=== PATIENT | male | born 1960 | race Caucasian/White ===

== ENCOUNTER 2020-09-05 08:17 | Observation (INO) ==
[2020-09-05 08:44] LABS: Basophils % 0.4 % (0.0-0.8); Eosinophils # 0.2 10*3/uL (0.0-0.87); Eosinophils % 1.8 % (0.00-10.9); Hematocrit 40.8 VOL% (42.0-52.0); Hemoglobin 14.3 GM/DL (14.0-18.0); Immature Granulocytes % 0.4 %; Immature Granulocytes Absolute 0.04 #; Lymphocytes # 1.2 10*3/uL (1.4-4.0); Lymphocytes % 10.9 % (21.2-54.2); Mean Corpuscular Volume 96.5 FL (87-102); Mean Platelet Volume 9.2 FL (9.6-12.0); Monocytes % 9.8 % (1.7-12.7); Neutrophils % 76.7 % (38.7-73.9); Platelet Count 267 T/CUMM (130-400); Red Blood Count 4.23 MC/CUMM (3.8-5.5); Red Cell Distribution Width 13.2 % (9.3-17.3)
[2020-09-05 09:04] LABS: Calcium 8.8 MG/DL (8.5-10.1); Osmolality,Calculated 270.8 MOS/KG (273-304); Potassium 4.3 MMOL/L (3.5-5.1)
[2020-09-05] MEDS ORDERED: DIPH/TET/ACEL PERT BOOSTER VACCINE 0.5 ML VIAL IM ONE (09:07)
[2020-09-05] MEDS ORDERED: ceFAZolin 1,000 MG in SYRINGE 1 EACH IV STA (09:09)
[2020-09-05 09:58] LABS: Barbiturates Screen,Urine Negative (Negative); Benzodiazepines Screen,Urine Negative (Negative); Cannabinoid Screen,Urine Negative (Negative); Opiate Screen,Urine Positive (Negative); Phencyclidine Screen,Urine Negative (Negative)
[2020-09-05 11:51] LABS: PT Patient Result 10.5 SECS (9.8-11.9); Partial Thromboplastin Time 29.6 SECS (23.9-33.8)
[2020-09-05] MEDS ORDERED: ONDANSETRON 4 MG/2 ML VIAL IV PRN ×2 (12:36→17:35)
[2020-09-05] MEDS ORDERED: MORPHINE 4 MG/1 ML VIAL IV PRN (12:36)
[2020-09-05] MEDS ORDERED: MAGNESIUM HYDROXIDE SUSP 30 ML UDCUP PO PRN (12:36)
[2020-09-05] MEDS ORDERED: ALBUTEROL 2.5 MG/3 ML NEB RESP TX PRN (12:39)
[2020-09-05] MEDS ORDERED: VANCOMYCIN INJ 1,500 MG in SODIUM CHLORIDE 0.9% 500 ML IV ONE (15:30)
[2020-09-05] MEDS: LACTATED RINGERS 1,000 ML IV SCH (15:48)
[2020-09-05] MEDS ORDERED: BUPIVACAINE MPF 0.25% 30 ML VIAL ONE (15:54)
[2020-09-05] MEDS ORDERED: LIDOCAINE 1% 20 ML VIAL ONE (15:54)
[2020-09-05] MEDS ORDERED: fentaNYL 100 MCG/2 ML VIAL ONE (16:20)
[2020-09-05] MEDS ORDERED: MIDAZOLAM 2 MG/2 ML VIAL ONE (16:20)
[2020-09-05] MEDS ORDERED: LIDOCAINE 2% 5 ML VIAL ONE (16:21)
[2020-09-05] MEDS ORDERED: SEVOFLURANE 1 UNIT/15 MINUTE INH ONE (16:21)
[2020-09-05] MEDS ORDERED: SUCCINYLCHOLINE 200 MG/10 ML VIAL ONE (16:21)
[2020-09-05] MEDS ORDERED: propofoL 200 MG/20 ML VIAL IV ONE (16:21)
[2020-09-05] MEDS ORDERED: ONDANSETRON 4 MG/2 ML VIAL ONE (16:58)
[2020-09-05] MEDS ORDERED: PHENYLEPHRINE 1 MG/10 ML SYRINGE IV ONE (17:00)
[2020-09-05] MEDS ORDERED: ROCURONIUM 50 MG/5 ML VIAL IV ONE (17:10)
[2020-09-05] MEDS ORDERED: SUGAMMADEX 200 MG/2 ML VIAL IV ONE (17:26)
[2020-09-05] MEDS ORDERED: PROMETHAZINE INJ 25 MG in SODIUM CHLORIDE 0.9% 50 ML IV PRN (17:35)
[2020-09-05] MEDS ORDERED: MEPERIDINE 25 MG/1 ML VIAL IV PRN (17:35)
[2020-09-05] MEDS ORDERED: diphenhydrAMINE 50 MG/1 ML VIAL IV PRN (17:35)
[2020-09-05] MEDS ORDERED: BALANCED SALT IRRIG SOLN 15 ML BOTTLE ONE (17:36)
[2020-09-05] MEDS: HYDROmorphone 2 MG/1 ML VIAL IV PRN ×4 (17:50→18:05)
[2020-09-05] MEDS ORDERED: ALBUTEROL 2.5 MG/3 ML NEB RESP TX ONE ×2 (18:06→18:18)
[2020-09-05] MEDS ORDERED: traZODone 50 MG TABLET PO PRN (21:00)
[2020-09-05] MEDS: ZIPRASIDONE 20 MG CAPSULE PO SCH (22:05)
[2020-09-05] MEDS: ROSUVASTATIN 10 MG TABLET PO SCH (22:05)
[2020-09-05] MEDS: GABAPENTIN 300 MG CAPSULE PO SCH (22:05)
[2020-09-05] MEDS: BUDESONIDE/FORMOTEROL 160-4.5 INHALER 6 GM INH SCH (22:12)
[2020-09-06] MEDS: VANCOMYCIN INJ 1,500 MG in SODIUM CHLORIDE 0.9% 500 ML IV SCH ×2 (02:18→15:39)
[2020-09-06] MEDS: LACTATED RINGERS 1,000 ML IV SCH (02:19)
[2020-09-06] MEDS ORDERED: BENZOCAINE/MENTHOL LOZENGE 18/BOX PO PRN (07:15)
[2020-09-06] MEDS: PANTOPRAZOLE 40 MG TABLET PO SCH (09:14)
[2020-09-06] MEDS: GABAPENTIN 300 MG CAPSULE PO SCH (09:14)
[2020-09-06] MEDS: ZIPRASIDONE 20 MG CAPSULE PO SCH ×2 (09:14→21:42)
[2020-09-06] MEDS: BUDESONIDE/FORMOTEROL 160-4.5 INHALER 6 GM INH SCH ×2 (09:16→21:43)
[2020-09-06] MEDS: GABAPENTIN 600 MG TABLET PO SCH ×2 (14:33→21:42)
[2020-09-06] MEDS: ROSUVASTATIN 10 MG TABLET PO SCH (21:42)
[2020-09-07] MEDS: VANCOMYCIN INJ 1,500 MG in SODIUM CHLORIDE 0.9% 500 ML IV SCH ×2 (02:58→15:16)
[2020-09-07] MEDS: ZIPRASIDONE 20 MG CAPSULE PO SCH ×2 (08:46→21:26)
[2020-09-07] MEDS: BUDESONIDE/FORMOTEROL 160-4.5 INHALER 6 GM INH SCH ×2 (08:47→21:27)
[2020-09-07] MEDS: PANTOPRAZOLE 40 MG TABLET PO SCH (08:47)
[2020-09-07] MEDS: GABAPENTIN 600 MG TABLET PO SCH ×3 (08:58→21:26)
[2020-09-07] MEDS: ROSUVASTATIN 10 MG TABLET PO SCH (21:26)
[2020-09-08] MEDS ORDERED: VANCOMYCIN INJ 1,750 MG in SODIUM CHLORIDE 0.9% 500 ML IV SCH (03:00)
[2020-09-08] MEDS: GABAPENTIN 600 MG TABLET PO SCH (08:41)
[2020-09-08] MEDS: PANTOPRAZOLE 40 MG TABLET PO SCH (08:41)
[2020-09-08] MEDS: ZIPRASIDONE 20 MG CAPSULE PO SCH (08:41)
[2020-09-08] MEDS: BUDESONIDE/FORMOTEROL 160-4.5 INHALER 6 GM INH SCH (08:41)
[2020-09-08 12:19] VITALS: BP 105/74
== END 2020-09-08 13:10 | disposition home or self-care (01) ==
LOC: EDBD → EDUNIT# → N.ED 08:17 → N.EDINP 08:17 → N.3E 08:42
PROVIDERS: ADMIT Orthopaedic Surgery; ATTEND Orthopaedic Surgery

== ENCOUNTER 2020-11-21 12:03 | Inpatient (IN) ==
[2020-11-21 13:28] LABS: Bilirubin,Urine Negative (Negative); Blood, Urine Negative (Negative); Glucose,Urine (UA) Negative (Negative); Ketones,Urine Negative (Negative); Mucus,Urine Occasional /LPF (Occasional); Nitrite,Urine Negative (Negative); Protein,Urine Negative; RBC,Urine <1 /HPF (0-4); Urine Appearance CLEAR (Clear); Urine Color Yellow (Yellow); Urine Specific Gravity 1.014 (1.001-1.035); Urine Urobilinogen < 2.0 EU/DL (0.2-1.0)
[2020-11-21 13:34] LABS: Barbiturates Screen,Urine Negative (Negative); Benzodiazepines Screen,Urine Negative (Negative); Cannabinoid Screen,Urine Negative (Negative); Opiate Screen,Urine Negative (Negative); Phencyclidine Screen,Urine Negative (Negative)
[2020-11-21 14:31] LABS: Salicylate 3.2 MG/DL (2.8-20)
[2020-11-21 14:32] LABS: Acetaminophen < 2.0 UG/ML (10-30)
[2020-11-21 14:33] LABS: Alanine Aminotransferase 22 U/L (16-61); Albumin 3.6 G/DL (3.4-5.0); Alkaline Phosphatase 119 U/L (45-117); Aspartate Amino Transferase 21 U/L (0-37); Blood Urea Nitrogen 6 MG/DL (7-18); Calcium 8.4 MG/DL (8.5-10.1); Carbon Dioxide 26 MMOL/L (21-32); Estimated Glom Filtration Rate 135 ML/MIN; Glucose 95 MG/DL (74-106); Osmolality,Calculated 235.5 MOS/KG (273-304); Potassium 3.2 MMOL/L (3.5-5.1); Total Protein 7.1 G/DL (6.4-8.2)
[2020-11-21 14:40] LABS: Sodium 118 MMOL/L (136-145)
[2020-11-21 15:29] LABS: Basophils % 0.4 % (0.0-0.8); Eosinophils # 0.2 10*3/uL (0.0-0.87); Eosinophils % 3.6 % (0.00-10.9); Hematocrit 34.5 VOL% (42.0-52.0); Hemoglobin 12.9 GM/DL (14.0-18.0); Immature Granulocytes % 0.4 %; Immature Granulocytes Absolute 0.02 #; Lymphocytes # 1.1 10*3/uL (1.4-4.0); Lymphocytes % 22.6 % (21.2-54.2); Mean Corpuscular HGB Conc 37.4 GM/DL (32-36); Mean Corpuscular Volume 86.5 FL (87-102); Mean Platelet Volume 9.3 FL (9.6-12.0); Monocytes % 14.1 % (1.7-12.7); Neutrophils % 58.9 % (38.7-73.9); Platelet Count 342 T/CUMM (130-400); Red Blood Count 3.99 MC/CUMM (3.8-5.5); Red Cell Distribution Width 12.2 % (9.3-17.3)
[2020-11-21 15:32] LABS: Eosinophils 5 % (0-10); Lymphocytes 31 % (20-55); Segmented Neutrophils 56 % (50-85); Total Cells Counted 100
[2020-11-21 15:33] LABS: Burr Cells Few; Hypochromasia Slight; Microcytosis Slight; Platelet Estimate Increased
[2020-11-21] MEDS ORDERED: POTASSIUM CHLORIDE 20 MEQ TABLET PO STA (16:19)
[2020-11-21] MEDS ORDERED: ACETAMINOPHEN 325 MG TABLET PO PRN (17:08)
[2020-11-21] MEDS ORDERED: GLUCAGON 1 MG VIAL IM PRN ×2 (17:08→17:52)
[2020-11-21] MEDS ORDERED: DEXTROSE 50% 25 GM/50 ML VIAL IV PRN ×2 (17:08→17:52)
[2020-11-21] MEDS ORDERED: ONDANSETRON 4 MG/2 ML VIAL IV PRN (17:08)
[2020-11-21] MEDS ORDERED: ENOXAPARIN 30 MG/0.3 ML SYRINGE SUBCUT SCH (17:30)
[2020-11-21] MEDS: SODIUM CHLORIDE 0.9% 1,000 ML IV SCH (18:36)
[2020-11-21 19:26] LABS: Calcium 8.5 MG/DL (8.5-10.1); Osmolality,Calculated 235.6 MOS/KG (273-304)
[2020-11-21] MEDS ORDERED: POTASSIUM CHLORIDE 20 MEQ TABLET PO PRN (19:36)
[2020-11-21 22:07] LABS: Calcium 8.2 MG/DL (8.5-10.1); Osmolality,Calculated 238.3 MOS/KG (273-304); Potassium 3.3 MMOL/L (3.5-5.1)
[2020-11-22 02:27] LABS: Osmolality,Calculated 240.1 MOS/KG (273-304); Potassium 3.4 MMOL/L (3.5-5.1)
[2020-11-22] MEDS: SODIUM CHLORIDE 0.9% 1,000 ML IV SCH ×3 (02:36→23:00)
[2020-11-22 05:07] LABS: Basophils % 0.8 % (0.0-0.8); Eosinophils # 0.3 10*3/uL (0.0-0.87); Eosinophils % 7.3 % (0.00-10.9); Hematocrit 33.4 VOL% (42.0-52.0); Hemoglobin 12.1 GM/DL (14.0-18.0); Immature Granulocytes % 0.3 %; Immature Granulocytes Absolute 0.01 #; Lymphocytes # 1.3 10*3/uL (1.4-4.0); Lymphocytes % 34.7 % (21.2-54.2); Mean Corpuscular HGB Conc 36.2 GM/DL (32-36); Mean Corpuscular Volume 89.1 FL (87-102); Mean Platelet Volume 8.9 FL (9.6-12.0); Neutrophils % 41.9 % (38.7-73.9); Platelet Count 298 T/CUMM (130-400); Red Blood Count 3.75 MC/CUMM (3.8-5.5); Red Cell Distribution Width 12.5 % (9.3-17.3); White Blood Count 3.9 T/CUMM (4-12)
[2020-11-22 05:36] LABS: Calcium 8.1 MG/DL (8.5-10.1); Osmolality,Calculated 243.8 MOS/KG (273-304); Potassium 3.5 MMOL/L (3.5-5.1)
[2020-11-22 06:31] LABS: Hypochromasia 1+; Platelet Estimate Normal
[2020-11-22] MEDS: NICOTINE 21 MG/24 HR PATCH TRANSDERM SCH (09:04)
[2020-11-22 09:48] LABS: Calcium 8.2 MG/DL (8.5-10.1); Osmolality,Calculated 240.1 MOS/KG (273-304); Potassium 3.7 MMOL/L (3.5-5.1)
[2020-11-22] MEDS ORDERED: LEVOFLOXACIN INJ 500 MG/100 ML PREMIX IV SCH (14:30)
[2020-11-22 14:43] LABS: Calcium 7.7 MG/DL (8.5-10.1); Osmolality,Calculated 246.6 MOS/KG (273-304); Potassium 3.7 MMOL/L (3.5-5.1)
[2020-11-22] MEDS ORDERED: cefTRIAXone 1,000 MG in SODIUM CHLORIDE 0.9% 100 ML IV SCH (15:00)
[2020-11-22] MEDS: AZITHROMYCIN 250 MG TABLET PO SCH (16:25)
[2020-11-22] MEDS: GABAPENTIN 300 MG CAPSULE PO SCH ×2 (16:25→22:27)
[2020-11-22] MEDS: busPIRone 15 MG TABLET PO SCH ×2 (16:25→22:27)
[2020-11-22] MEDS: PHENYTOIN ER 100 MG CAPSULE PO SCH ×2 (16:25→22:28)
[2020-11-22 17:02] LABS: Calcium 7.9 MG/DL (8.5-10.1); Osmolality,Calculated 246.6 MOS/KG (273-304); Potassium 3.9 MMOL/L (3.5-5.1)
[2020-11-22 20:33] LABS: Osmolality,Calculated 250.4 MOS/KG (273-304); Potassium 3.9 MMOL/L (3.5-5.1)
[2020-11-22] MEDS ORDERED: traZODone 50 MG TABLET PO SCH (21:00)
[2020-11-22] MEDS ORDERED: ENOXAPARIN 40 MG/0.4 ML SYRINGE SUBCUT SCH (21:00)
[2020-11-22] MEDS: ZIPRASIDONE 20 MG CAPSULE PO SCH (22:26)
[2020-11-23 00:55] LABS: Osmolality,Calculated 256.8 MOS/KG (273-304); Potassium 4.3 MMOL/L (3.5-5.1)
[2020-11-23 01:51] LABS: Protein/Creatinine Ratio,Urine 0.2 RATIO
[2020-11-23 05:46] LABS: Basophils % 0.4 % (0.0-0.8); Eosinophils # 0.3 10*3/uL (0.0-0.87); Eosinophils % 5.7 % (0.00-10.9); Hematocrit 34.1 VOL% (42.0-52.0); Hemoglobin 12.3 GM/DL (14.0-18.0); Immature Granulocytes % 0.2 %; Immature Granulocytes Absolute 0.01 #; Lymphocytes # 1.6 10*3/uL (1.4-4.0); Lymphocytes % 34.2 % (21.2-54.2); Mean Corpuscular HGB Conc 36.1 GM/DL (32-36); Mean Corpuscular Volume 90.5 FL (87-102); Mean Platelet Volume 9.1 FL (9.6-12.0); Monocytes % 13.7 % (1.7-12.7); Neutrophils % 45.8 % (38.7-73.9); Platelet Count 308 T/CUMM (130-400); Red Blood Count 3.77 MC/CUMM (3.8-5.5); Red Cell Distribution Width 12.5 % (9.3-17.3); White Blood Count 4.5 T/CUMM (4-12)
[2020-11-23 06:02] LABS: Calcium 8.2 MG/DL (8.5-10.1); Osmolality,Calculated 260.5 MOS/KG (273-304); Potassium 4.1 MMOL/L (3.5-5.1)
[2020-11-23 06:10] LABS: Eosinophils 10 % (0-10); Lymphocytes 26 % (20-55); Platelet Estimate Adequate; Segmented Neutrophils 55 % (50-85); Total Cells Counted 100
[2020-11-23 06:11] LABS: Hypochromasia 1+; Microcytosis 1+
[2020-11-23] MEDS ORDERED: PANTOPRAZOLE 40 MG TABLET PO SCH (06:30)
[2020-11-23 06:58] LABS: Calcium 8.2 MG/DL (8.5-10.1); Osmolality,Calculated 258.7 MOS/KG (273-304); Potassium 3.9 MMOL/L (3.5-5.1)
[2020-11-23] MEDS: PHENYTOIN ER 100 MG CAPSULE PO SCH (08:33)
[2020-11-23] MEDS: GABAPENTIN 300 MG CAPSULE PO SCH (08:33)
[2020-11-23] MEDS: busPIRone 15 MG TABLET PO SCH (08:33)
[2020-11-23] MEDS: ZIPRASIDONE 20 MG CAPSULE PO SCH (08:33)
[2020-11-23] MEDS: NICOTINE 21 MG/24 HR PATCH TRANSDERM SCH (08:34)
[2020-11-23] MEDS: AZITHROMYCIN 250 MG TABLET PO SCH (08:34)
[2020-11-23] MEDS ORDERED: BENZTROPINE 1 MG TABLET PO SCH (09:00)
[2020-11-23 12:26] VITALS: BP 121/69
== END 2020-11-23 12:35 | disposition home or self-care (01) | DRG 640 ==
LOC: N.EDINP 12:03 → N.ED 12:03 → N.5E 18:35
PROVIDERS: ADMIT Hospitalist; ATTEND Hospitalist